=== PATIENT | male | born 1980 | race Two or more races ===

== ENCOUNTER 2019-09-20 03:59 | Emergency (ER) | payer SELFPAY ==
[~2019-09-20] VITALS: Ht 182.9 cm; Wt 81.6 kg
[2019-09-20] MEDS ORDERED: THIAMINE INJ 100 MG in SODIUM CHLORIDE 0.9% 1,000 ML IV ONE (05:00)
[2019-09-20] MEDS ORDERED: SODIUM CHLORIDE 0.9% 1,000 ML IV ONE ×2 (05:00→08:00)
[2019-09-20] MEDS ORDERED: NALOXONE HCL 0.4 MG/ML VIAL ONE ×2 (05:16→05:31)
[2019-09-20] MEDS ORDERED: NALOXONE HCL 1MG/ML 2ML SYRINGE IV ONE (05:30)
[2019-09-20 05:48] LABS: Basophils # (auto) 0.1 uL; Basophils % (auto) 1.7 % (0.0-2.0); Eosinophils # (auto) 0.1 uL; Lymphocytes # (auto) 1.6 uL; White Blood Cell 6.3 10^3/uL (4.4-10.8)
[2019-09-20 05:50] LABS: Eosinophils % (auto) 1.3 % (0.0-7.0); Hematocrit 47.8 % (41.0-53.0); Hemoglobin 16.8 g/dL (13.5-17.5); Lymphocytes % (auto) 25.7 % (10.0-50.0); Mean Corpuscular Hemoglobin 39.7 pg (28.0-32.0); Mean Corpuscular Hgb Conc. 35.2 g/dL (32.0-36.0); Mean Corpuscular Volume 112.8 fL (80.0-100.0); Monocytes # (auto) 0.9 uL; Monocytes % (auto) 14.9 % (0.0-12.0); Neutrophils # (auto) 3.6 uL; Neutrophils % (auto) 56.4 % (37.0-80.0); Platelet Count (auto) 104 10^3/uL (140-450); Red Blood Cells 4.24 10^6/uL (4.5-5.90); Red Cell Distribution Width 13.4 % (11.8-14.3)
[2019-09-20 06:13] LABS: Albumin 4.5 g/dL (3.4-5.0); BUN/Creatinine Ratio 7.8; Magnesium 3.2 mg/dL (1.6-2.6); Potassium 3.8 mmol/L (3.5-5.1); Salicylate 2.9 mg/dL (2.8-20.0)
[2019-09-20 06:15] LABS: Bilirubin, Total 0.6 mg/dL (0.2-1.0); Total Protein 8.8 g/dL (6.4-8.2)
[2019-09-20 06:25] LABS: Acetaminophen < 2.0 ug/mL (10-30)
[2019-09-20] MEDS ORDERED: THIAMINE 100mg/ml INJ (200mg/2ml VIAL) ONE (07:12)
[2019-09-20 07:56] LABS: INR 0.98 (0.9-1.15); Partial Thromboplastin Time 28.3 sec (23.64-32.05)
[2019-09-20 10:00] VITALS: BP 104/75
== END 2019-09-20 12:22 | disposition home or self-care (01) ==
LOC: EDBD 03:59 → ER 04:06
DX: F10.120 Alcohol abuse with intoxication, uncomplicated (principal); K70.10 Alcoholic hepatitis without ascites; F19.10 Other psychoactive substance abuse, uncomplicated
CPT/HCPCS: 36415; 70450; 80053; 80320; 80329; 82962; 83735; 85025; 85610; 85730; 96361; 96365; 96375; 99284; J2310; J3411; J7030